=== PATIENT | female | born 1985 | race African-American/Black ===

== ENCOUNTER 2016-11-30 21:10 | Emergency (ER) | payer BC, OTHER ==
[~2016-11-30] VITALS: Ht 160 cm; Wt 100.0 kg
[~2016-11-30 21:10] MED LIST: Z.0.NO CURRENT MEDS; erythromycin OS
[2016-11-30 21:13] VITALS: BP 138/95; PULSE 78; RESP 16; TEMP 98.4; O2SAT 100
[2016-11-30] MEDS ORDERED: CYCL1TAB29 PO (21:40)
[2016-11-30] MEDS ORDERED: DICL50TA3 PO (21:40)
[2016-11-30] MEDS ORDERED: ACETAMINOPHEN/HYDROcodone 325 MG/5 MG TAB PO ONE (21:45)
[2016-11-30] MEDS ORDERED: IBUPROFEN 600 MG TAB PO ONE (21:45)
--- NOTE | 2016-11-30 21:52 | PD ---
HPI Chief Complaint: Fall Time Seen by Provider: 21:49 Travel History International Travel<30 days: No Contact w/Intl Traveler<30days: No Traveled to known affect area: No History of Present Illness HPI 31-year-old black female presents to emergency department for evaluation of a slip and fall. She states that while at work today she stepped in a drain causing her to twist her right knee and fall onto her back. She is complaining of pain in the right knee and lower back. She did not hit her head. No syncope. No nausea vomiting. No neck or upper back pain. Pain is mild to moderate. Worse with movement. Some early for many still. PFSH Past Medical History Medical History: Denies Significant Hx Diminished Hearing: No Tetanus Vaccination: Unknown Influenza Vaccination: No ?: Not LMP: 2 WEEKS AGO : 0 Para: 0 Miscarriage: 0 : 0 Past Surgical History Surgical History: No Previous Surgery Social History Alcohol Use: Yes (OCCASIONAL EVERY 2 WEEKS) Tobacco Use: No Substance Use: No Allergies-Medications (Allergen,Severity, Reaction): Coded Allergies: No Known Allergies (Verified , 11/30/16) Reported Meds & Prescriptions Reported Meds & Active Scripts Active Flexeril (Cyclobenzaprine HCl) 10 Mg Tab 10 Mg PO TID Diclofenac Sodium DR (Diclofenac Sodium) 50 Mg Tabdr 50 Mg PO TID Review of Systems Except as stated in HPI: all other systems reviewed are Neg Physical Exam Narrative GENERAL: Well-developed, well-nourished in no apparent distress. Nontoxic appearing. HEAD: Normocephalic, atraumatic. EYES: Pupils equal round and reactive. Extraocular motions intact. No scleral icterus. No injection or drainage. ENT: Nose clear. Throat without erythema, tonsillar hypertrophy or exudate. Uvula midline. Airway patent. NECK: Trachea midline. Supple, nontender, moves head freely. No central bony tenderness or spasm. CARDIOVASCULAR: Regular rate and rhythm without murmurs, gallops, or rubs. RESPIRATORY: Clear to auscultation. Breath sounds equal bilaterally. No wheezes , rales, or rhonchi. GASTROINTESTINAL: Abdomen soft, non-tender, nondistended. No hepato-splenomegaly , or palpable masses. No guarding. EXTREMITIES: No clubbing, cyanosis, or edema. Examination of the right lower extremity reveals mild infrapatellar tenderness. No gross instability. Full range of motion. No joint effusion. No ecchymosis. Skin is intact. No pain in the hip, ankle or foot. The left lower extremity is unremarkable. The upper extremities are unremarkable. BACK: Patient complains of diffuse lower lumbar tenderness without localization. No spasm. No saddle anesthesia. Without deformity. No flank tenderness. The patient is up and independently ambulatory with only a mildly antalgic gait. NEUROLOGICAL: Awake, alert and oriented x 3 .Cranial nerves grossly intact. Motor and sensory grossly within normal limits. Normal speech. Data Data Last Documented VS Vital Signs Date Time Temp Pulse Resp B/P Pulse Ox O2 Delivery O2 Flow Rate FiO2 11/30/16 21:13 98.4 78 16 138/95 100 Orders Ibuprofen (Motrin) (11/30/16 21:45) Acetamin-Hydrocod 325-5 Mg ([place] 5-325 (11/30/16 21:45) MDM Medical Decision Making Medical Screen Exam Complete: Yes Emergency Medical Condition: Yes Medical Record Reviewed: Yes Differential Diagnosis MDM: High Differential diagnoses: Fracture, sprain, strain, dislocation, contusion, neurovascular injury Narrative Course Patient's history and exam is inconsistent with any significant bony injury. X- rays are not indicated at this time. Patient given Lortab 5 mg by mouth and Motrin 600 mg by mouth. This is right knee sprain, back contusion Diagnosis Primary Impression: Right knee sprain Additional Impression: Back contusion Patient Instructions: Narcotic given in the ED, General Instructions Departure Forms: Tests/Procedures, Work Release Special Instructions: No work 3 days. Additional Instructions: Rest. Ice for the next 3 days followed by heat . Flexeril and Voltaren. Follow-up with a primary care doctor in one week. Return to the ER for emergencies. Med/Other Pt SpecificInfo: Prescription(s) given Scripts Cyclobenzaprine (Flexeril)10 Mg Tab10 Mg PO TID #21 TAB Prov:Arcelia Buchanan MD 11/30/[address] 50 Mg Tabdr50 Mg PO TID #21 TAB Prov:Arcelia Buchanan MD 11/30/16 Disposition: 01 DISCHARGE HOME Condition: Stable Avi Herrera Nov 30, 2016 21:52
== END 2016-11-30 22:15 | disposition home or self-care (01) ==
LOC: NEPB 21:10
DX: S83.91XA Sprain of unspecified site of right knee, initial encounter (principal); W18.39XA Other fall on same level, initial encounter; M25.561 Pain in right knee
CPT/HCPCS: 99283